=== PATIENT | male | born 1955 | race African-American/Black ===

== ENCOUNTER 2017-05-19 08:12 | Emergency (ER) | payer OTHER ==
[~2017-05-19] VITALS: Ht 185.4 cm; Wt 66.4 kg
[~2017-05-19 08:12] MED LIST: CARI350T PO; OXYC30TA PO
[2017-05-19 08:14] VITALS: Ht 185.4 cm; Wt 66.4 kg
--- NOTE | 2017-05-19 08:52 | ERD ---
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 pain is dull, rated 6/10, radiated to lateral ankle. Denies acute trauma, deformity, no decreased range of motion , no fever, chills, N/V/D. Treatment attempted: Soma with mild improvement of the symptoms ROS SYSTEMIC symptoms: no fever, chills, no night sweats, no weight loss EYE symptoms: No blurred vision, no eye discharge OTOLARYNGEAL symptoms: No hearing loss. No ear pain, no sore throat CARDIOVASCULAR symptoms: No chest pain or discomfort, no palpitations. PULMONARY symptoms: No dyspnea, no cough, no wheezing. GASTROINTESTINAL symptoms: No abdominal pain, no nausea, no vomiting, no diarrhea MUSCULOSKELETAL symptoms: + arthralgias, + muscle aches. NEUROLOGY symptoms: No confusion, no syncope, no numbness or tingling. SKIN no rashes All systems reviewed and are negative except as per history of present illness. 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 Alert and fully oriented. EYES: PERRLA, EOMI, Sclera and conjunctiva appear normal. EARS: Canals clear, tympanic membranes WNL THROAT: Normal oropharynx. NECK: Supple, No lymphadenopathy. Full ROM without pain or tenderness. HEART: RRR, no rubs, murmurs, clicks or gallops. LUNGS: Clear to auscultation. ABDOMEN: Soft, non-tender without masses or hepatosplenomegaly. EXTREMITIES: No edema bilaterally. MUSC: Full ROM, no deformity, normal back exam. Right lower extremity: No edema, no deformity. No palpable cord no tenderness on the calf. Procedures/MDM 61y/o male patient left hip chronic pain, presents to the ED c/o right lower extremity pain for 2 weeks without history of recent trauma. Vital signs stable , Physical exam unremarkable. Differential diagnosis include but not limited to : Acute ligament/tendon injury, meniscus injury, knee arthrosis, less likely stress fracture. Low suspicion for DVT, cellulitis, abscess.. Physical examination and clinical presentation consistent most likely with right lower extremity muscle sprain. During the ED course the patient remained stable no new complaints, I placed an Randell bandage and the patient referred feeling much better. Medical impression discussed with patient who agrees with management. The patient will be discharged home with a Rx for [place]tuck #12 Side effects of prescribed narcotic medications (drowsiness, constipation, habituation) were reviewed. Side effects of prescribed muscle relaxants (drowsiness, habituation) were reviewed. Side effects of prescribed NSAID medication (GI distress, edema, bleeding, HTN) were reviewed. If symptoms persist, worsen or new symptoms develop, then patient is instructed to follow-up with the primary care provider. If the patient is unable to see the primary care provider, then return to the ED immediately. Departure Diagnosis: Primary Impression: Pain of right leg Condition: Stable Additional Instructions: Thank you very much for allowing us to participate in your care. Your health and safety is our top priority at [facility]. Have prescriptions filled and follow precisely the directions on the label. Follow-up with primary care provider during the next 4 days and bring all the information and medications prescribed. If illness has not improved in 2 days, then make an appointment with primary care provider. If the provider is unavailable, return to the Emergency Department immediately. BLANCA GIL MD May 19, 2017 08:52
--- NOTE | 2017-05-19 08:52 | ERD ---
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 pain is dull, rated 6/10, radiated to lateral ankle. Denies acute trauma, deformity, no decreased range of motion , no fever, chills, N/V/D. Treatment attempted: Soma with mild improvement of the symptoms ROS SYSTEMIC symptoms: no fever, chills, no night sweats, no weight loss EYE symptoms: No blurred vision, no eye discharge OTOLARYNGEAL symptoms: No hearing loss. No ear pain, no sore throat CARDIOVASCULAR symptoms: No chest pain or discomfort, no palpitations. PULMONARY symptoms: No dyspnea, no cough, no wheezing. GASTROINTESTINAL symptoms: No abdominal pain, no nausea, no vomiting, no diarrhea MUSCULOSKELETAL symptoms: + arthralgias, + muscle aches. NEUROLOGY symptoms: No confusion, no syncope, no numbness or tingling. SKIN no rashes All systems reviewed and are negative except as per history of present illness. 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 Alert and fully oriented. EYES: PERRLA, EOMI, Sclera and conjunctiva appear normal. EARS: Canals clear, tympanic membranes WNL THROAT: Normal oropharynx. NECK: Supple, No lymphadenopathy. Full ROM without pain or tenderness. HEART: RRR, no rubs, murmurs, clicks or gallops. LUNGS: Clear to auscultation. ABDOMEN: Soft, non-tender without masses or hepatosplenomegaly. EXTREMITIES: No edema bilaterally. MUSC: Full ROM, no deformity, normal back exam. Right lower extremity: No edema, no deformity. No palpable cord no tenderness on the calf. Procedures/MDM 61y/o male patient left hip chronic pain, presents to the ED c/o right lower extremity pain for 2 weeks without history of recent trauma. Vital signs stable , Physical exam unremarkable. Differential diagnosis include but not limited to : Acute ligament/tendon injury, meniscus injury, knee arthrosis, less likely stress fracture. Low suspicion for DVT, cellulitis, abscess.. Physical examination and clinical presentation consistent most likely with right lower extremity muscle sprain. During the ED course the patient remained stable no new complaints, I placed an Randell bandage and the patient referred feeling much better. Medical impression discussed with patient who agrees with management. The patient will be discharged home with a Rx for [place] #12 Side effects of prescribed narcotic medications (drowsiness, constipation, habituation) were reviewed. Side effects of prescribed muscle relaxants (drowsiness, habituation) were reviewed. Side effects of prescribed NSAID medication (GI distress, edema, bleeding, HTN) were reviewed. If symptoms persist, worsen or new symptoms develop, then patient is instructed to follow-up with the primary care provider. If the patient is unable to see the primary care provider, then return to the ED immediately. Departure Diagnosis: Primary Impression: Pain of right leg Condition: Stable Additional Instructions: Thank you very much for allowing us to participate in your care. Your health and safety is our top priority at [facility]. Have prescriptions filled and follow precisely the directions on the label. Follow-up with primary care provider during the next 4 days and bring all the information and medications prescribed. If illness has not improved in 2 days, then make an appointment with primary care provider. If the provider is unavailable, return to the Emergency Department immediately. BLANCA GIL MD May 19, 2017 08:52
[2017-05-19] MEDS ORDERED: HYDR-906 PO (09:05)
== END 2017-05-19 09:56 | disposition left against medical advice (07) ==
LOC: FTE 08:12
DX: M79.604 Pain in right leg (principal); F17.210 Nicotine dependence, cigarettes, uncomplicated
CPT/HCPCS: 99283

== ENCOUNTER 2017-05-27 09:39 | Emergency (ER) | payer OTHER ==
[~2017-05-27] VITALS: Ht 185.4 cm; Wt 66.4 kg
[~2017-05-27 09:39] MED LIST changes: +HYDR-906 PO
[2017-05-27 09:43] VITALS: Ht 185.4 cm; Wt 66.4 kg
--- NOTE | 2017-05-27 11:14 | ERD ---
ER Documentation Chief Complaint Chief Complaint RT LEG PAIN \ SEEN HERE LAST WEEK HPI 61-year-old male presents emergency department for right lower leg pain that is nontraumatic. Was here last week for the same complaint. Denies headache, dizziness, blurred vision, neck pain, shoulder pain, chest pain , back pain, abdominal pain, nausea, vomiting, constipation, diarrhea, loss of bowel bladder control, recent injury, trauma, falls, numbness or tingling sensation, fever, chills. No known drug allergies. No past medical history. Medication: Stated that he takes pain medications at home. Social: Not working this time. Denies smoking , use of alcoholic beverages, use of illegal drugs. ROS All systems reviewed and are negative except as per history of present illness. Medications Home Meds Active Scripts Cyclobenzaprine Hcl* (Cyclobenzaprine Hcl*) 10 Mg Tablet, 10 MG PO TID Y for muscle spasms, #15 TAB Prov:MAISHA JONES 05/27/17 Hydrocodone/Acetaminophen ([place] 5-325 Tablet) 1 Each Tablet, 1 TAB PO Q6H Y for PAIN, #20 TAB Prov:BLANCA GIL MD 05/19/17 Reported Medications Oxycodone Hcl* (IR) (Oxycodone Hcl*) 30 Mg Tablet, 30 MG PO DAILY Y for PAIN, TAB 06/15/14 Carisoprodol* (Soma*) 350 Mg Tablet, 350 MG PO Q8H Y for MUSCLE SPASMS, TAB 06/15/14 Allergies Allergies: Coded Allergies: No Known Allergy (Unverified , 05/19/17) PMhx/Soc History of Surgery: No Anesthesia Reaction: No 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 Neck: Full range of motion..~ No meningismus. Resp: Clear to auscultation bilaterally Cardio: Regular rate and rhythm, no murmurs Abd: Soft, non tender, non distended. Normal bowel sounds Skin: No petechiae or rashes Back: No midline or flank tenderness Ext: No cyanosis, or edema. Bilateral hips are stable and unremarkable. No obvious deformity to lower extremities. Bilateral upper extremities are unremarkable. Right straight leg test is positive. Negative on Homans sign bilaterally. No calf tenderness bilaterally. No calf discoloration bilaterally. C-spine/T-spine/L-spine are in midline with good and full range of motion and has no deformity/bulging/discoloration/point of tenderness. Bilateral upper and lower extremities are unremarkable. No neurovascular deficits. Neur: Awake and alert. No neurological deficits. Romberg test is negative. Psych: Normal Mood and Affect Results 24 hrs Current Medications Medications (Trade) Dose Ordered Sig/Leonid Route PRN Reason Start Time Stop Time Status Last Admin Dose Admin Cyclobenzaprine HCl (Flexeril) 10 mg ONCE ONCE PO 05/27/17 11:30 05/27/17 11:31 DC 05/27/17 11:47 Procedures/MDM 61-year-old male presents emergency department for right lower leg pain that is nontraumatic. Was here last week for the same complaint. Denies headache, dizziness, blurred vision, neck pain, shoulder pain, chest pain , back pain, abdominal pain, nausea, vomiting, constipation, diarrhea, loss of bowel bladder control, recent injury, trauma, falls, numbness or tingling sensation, recent long travel, fever, chills. No known drug allergies. No past medical history. Medication: Stated that he takes pain medications at home. Social: Not working this time. Denies smoking , use of alcoholic beverages, use of illegal drugs. Physical exam: No cyanosis, or edema. Bilateral hips are stable and unremarkable. No obvious deformity to lower extremities. Bilateral upper extremities are unremarkable. Right straight leg test is positive. Negative on Homans sign bilaterally. No calf tenderness bilaterally. No calf discoloration bilaterally. C-spine/T-spine/L-spine are in midline with good and full range of motion and has no deformity/bulging/discoloration/point of tenderness. Bilateral upper and lower extremities are unremarkable. No neurovascular deficits. Romberg test is negative. Patient agreed with the plan of care. Differential diagnosis: DVT versus leg pain versus sciatica versus musculoskeletal spasms Final diagnosis: Right leg pain/sciatica Prescription: Flexeril. Follow-up with PCP in the next 24-48 hours. Come back to emergency department for any new symptoms or any worsening of symptoms. All questions and concerns are answered. Patient verbalized understanding and agreed with the plan of care. Hemodynamically stable on discharge. Departure Diagnosis: Primary Impression: Pain of right leg Additional Impression: Sciatica Condition: Stable Additional Instructions: Follow-up with PCP in the next 24-48 hours. Come back to emergency department for any new symptoms or any worsening of symptoms. All questions and concerns are answered. Patient verbalized understanding and agreed with the plan of care. MAISHA JONES May 27, 2017 11:14
[2017-05-27] MEDS ORDERED: CYCL-319 PO (11:15)
[2017-05-27] MEDS ORDERED: CYCLOBENZAPRINE 10 MG TAB PO ONE (11:30)
== END 2017-05-27 12:50 | disposition home or self-care (01) ==
LOC: FTE 09:39
DX: M79.604 Pain in right leg (principal); M54.31 Sciatica, right side; Z87.891 Personal history of nicotine dependence
CPT/HCPCS: Z7502; Z7610; 99283

== ENCOUNTER 2017-11-18 11:58 | Emergency (ER) | END 2017-11-18 13:00 | disposition left against medical advice (07) ==

== ENCOUNTER 2018-05-19 18:09 | Emergency (ER) | END 2018-05-19 20:53 | disposition home or self-care (01) ==

== ENCOUNTER 2018-07-06 12:43 | Emergency (ER) | END 2018-07-06 14:14 | disposition home or self-care (01) ==